=== PATIENT | female | born 1990 | race Caucasian/White ===

== ENCOUNTER 2016-06-30 20:19 | Emergency (ER) | payer BC, MEDICAID ==
[~2016-06-30] VITALS: Ht 149.9 cm; Wt 59.0 kg
[~2016-06-30 20:19] MED LIST: ALBUTEROL
[2016-06-30 20:23] VITALS: BP_SYST 118
[2016-06-30 22:17] LABS: BILIRUBIN,URINE NEGATIVE (NEGATIVE); BLOOD, URINE 3+ (NEGATIVE); COLOR,URINE YELLOW (YELLOW); GLUCOSE,URINE NEGATIVE (NEGATIVE); KETONES,URINE NEGATIVE (NEGATIVE); LEUKOCYTE ESTERASE ,URINE NEGATIVE (NEGATIVE); NITRITE, URINE NEGATIVE (NEGATIVE); PROTEIN URINE NEGATIVE (NEGATIVE); UROBILINOGEN,URINE 0.2 (0.2-1.0)
[2016-06-30 22:18] LABS: CLARITY/URINE SLIGHTLY HAZY (CLEAR)
[2016-06-30 22:28] LABS: BACTERIA,URINE FEW /HPF (None Seen); MUCUS,URINE None Seen /LPF (None Seen); RBC,URINE 20-50 /HPF (0-3); WBC,URINE 0-3 /HPF (0-3)
[2016-06-30] MEDS ORDERED: KETOROLAC TROMETHAMINE 60 MG/2 ML VIAL IM ONE (23:00)
[2016-06-30 23:11] VITALS: BP_SYST 118
== END 2016-06-30 23:11 | disposition home or self-care (01) ==
LOC: SED 20:19
DX: T19.2XXA Foreign body in vulva and vagina, initial encounter (principal); E78.00 Pure hypercholesterolemia, unspecified; J45.909 Unspecified asthma, uncomplicated; X58.XXXA Exposure to other specified factors, initial encounter; Y93.89 Activity, other specified; Y92.89 Other specified places as the place of occurrence of the external cause; Y99.8 Other external cause status
CPT/HCPCS: 81000; 81025; 96372; 99284; J1885

== ENCOUNTER 2017-01-27 11:48 | Inpatient (IN) | payer BC, MEDICAID ==
[~2017-01-27] VITALS: Ht 149.9 cm; Wt 59.0 kg
[2017-01-27 11:50] VITALS: BP_SYST 123
[2017-01-27 14:24] LABS: BASOPHILS % (AUTO) 0.5 % (0.0-2.0); EOSINOPHILS # (AUTO) 0.1 K/uL (0.0-0.4); EOSINOPHILS % (AUTO) 1.5 % (0.0-4.0); HEMATOCRIT 28.3 % (36-48); HEMOGLOBIN 8.5 g/dL (12.0-16.0); LYMPHOCYTES # (AUTO) 1.4 K/uL (1.0-5.5); LYMPHOCYTES % (AUTO) 17.1 % (20.5-51.5); MEAN CORPUSCULAR HEMOGLOBIN 20 pg (27-31); MEAN CORPUSCULAR HGB CONC 30 % (32-36); MEAN CORPUSCULAR VOLUME 65 fL (79.0-98.0); MONOCYTES # (AUTO) 0.5 K/uL (0.0-1.0); NEUTROPHILS % (AUTO) 74.9 % (40.0-70.0); PLATELET COUNT (AUTO) 275 K/uL (130-430); RED BLOOD CELL COUNT(AUTO) 4.36 MIL/uL (4.2-6.2); RED CELL DISTRIBUTION WIDTH 16.5 % (9.0-15.0)
[2017-01-27 14:44] LABS: CALCIUM 8.6 mg/dL (8.4-11.0); CREATININE 0.72 mg/dL (0.55-1.30); POTASSIUM 3.9 mmol/L (3.5-5.1)
[2017-01-27 14:49] LABS: ALBUMIN 4.5 g/dL (3.4-4.8); TOTAL BILIRUBIN 0.4 mg/dL (0.0-1.0)
[2017-01-27] MEDS ORDERED: NACL 0.9% 1,000 ML IV ONE (15:15)
[2017-01-27 16:01] LABS: PROTHROMBIN TIME 9.8 SECS (9.5-12.5)
[2017-01-27] MEDS ORDERED: FERR-57 PO (16:05)
[2017-01-27 16:33] VITALS: BP_SYST 120
[2017-01-27 16:45] LABS: BILIRUBIN,URINE NEGATIVE (NEGATIVE); BLOOD, URINE NEGATIVE (NEGATIVE); CLARITY/URINE HAZY (CLEAR); COLOR,URINE YELLOW (YELLOW); GLUCOSE,URINE NEGATIVE (NEGATIVE); KETONES,URINE NEGATIVE (NEGATIVE); LEUKOCYTE ESTERASE ,URINE NEGATIVE (NEGATIVE); NITRITE, URINE NEGATIVE (NEGATIVE); PROTEIN URINE TRACE (NEGATIVE); UROBILINOGEN,URINE 0.2 (0.2-1.0)
[2017-01-27] MEDS ORDERED: FLU VACC QS 2017-18(36MOS+)/PF 0.5 ML/SYR SYRINGE I.M. PRN (16:45)
[2017-01-27 16:57] LABS: BACTERIA,URINE FEW /HPF (None Seen); MUCUS,URINE 4+ /LPF (None Seen); RBC,URINE 0-3 /HPF (0-3)
[2017-01-27 20:00] VITALS: BP_SYST 112
[2017-01-28] VITALS: BP_SYST 101
[2017-01-28 04:00] VITALS: BP_SYST 105
[2017-01-28 06:17] LABS: HEMATOCRIT 32.3 % (36-48); HEMOGLOBIN 10.1 g/dL (12.0-16.0)
[2017-01-28] MEDS ORDERED: FERROUS SULFATE 325 MG TABLET.DR PO SCH (09:00)
[2017-01-28 12:43] VITALS: BP_SYST 107
[2017-01-28 14:40] VITALS: BP_SYST 107
[2017-01-28] MEDS ORDERED: PROV10 PO (15:45)
[2017-01-28 15:46] VITALS: BP_SYST 107
== END 2017-01-28 16:11 | disposition home or self-care (01) | DRG 532 ==
LOC: SED 11:48 → SMU 15:58
PROC: 30233N1 Transfusion of Nonautologous Red Blood Cells into Peripheral Vein, Percutaneous Approach (ICD-10-PCS; principal; 2017-01-27)
DX: D25.9 Leiomyoma of uterus, unspecified (principal); E28.2 Polycystic ovarian syndrome; D64.9 Anemia, unspecified; J45.909 Unspecified asthma, uncomplicated; E66.3 Overweight; Z68.26 Body mass index [BMI] 26.0-26.9, adult; Z79.899 Other long term (current) drug therapy
CPT/HCPCS: 36415; 76830-TC; 76857; 80053; 81000-TC; 84703; 85018-TC; 85025; 85610-TC; 85730-TC; 86886; 86900; 86901; 86920; 96360; 99285; J7030; J7040; P9021; Q2037

== ENCOUNTER 2017-02-09 09:05 | Emergency (ER) | payer MEDICAID ==
[~2017-02-09] VITALS: Ht 147.3 cm; Wt 68.0 kg
[~2017-02-09 09:05] MED LIST changes: +FERR-57 PO; +PROV10 PO
[2017-02-09 09:18] VITALS: BP_SYST 105
[2017-02-09 10:05] LABS: BASOPHILS % (AUTO) 0.4 % (0.0-2.0); EOSINOPHILS # (AUTO) 0.2 K/uL (0.0-0.4); EOSINOPHILS % (AUTO) 1.9 % (0.0-4.0); HEMATOCRIT 34.2 % (36-48); HEMOGLOBIN 10.8 g/dL (12.0-16.0); LYMPHOCYTES # (AUTO) 0.7 K/uL (1.0-5.5); LYMPHOCYTES % (AUTO) 8.8 % (20.5-51.5); MEAN CORPUSCULAR HEMOGLOBIN 23 pg (27-31); MEAN CORPUSCULAR HGB CONC 32 % (32-36); MEAN CORPUSCULAR VOLUME 71 fL (79.0-98.0); MONOCYTES # (AUTO) 0.5 K/uL (0.0-1.0); MONOCYTES % (AUTO) 5.7 % (1.7-9.3); NEUTROPHILS % (AUTO) 83.2 % (40.0-70.0); PLATELET COUNT (AUTO) 185 K/uL (130-430); RED BLOOD CELL COUNT(AUTO) 4.79 MIL/uL (4.2-6.2); RED CELL DISTRIBUTION WIDTH 24.2 % (9.0-15.0); WHITE BLOOD COUNT (AUTO) 8.4 K/uL (4.8-10.8)
[2017-02-09 10:24] LABS: CALCIUM 8.9 mg/dL (8.4-11.0); CREATININE 0.71 mg/dL (0.55-1.30); POTASSIUM 4.2 mmol/L (3.5-5.1)
[2017-02-09 10:31] LABS: ALBUMIN 4.3 g/dL (3.4-4.8); TOTAL BILIRUBIN 0.5 mg/dL (0.0-1.0)
[2017-02-09 10:43] LABS: PROTHROMBIN TIME 10.3 SECS (9.5-12.5)
[2017-02-09] MEDS ORDERED: IBUPROFEN 800 MG TABLET PO ONE (11:15)
[2017-02-09] MEDS ORDERED: HYDROcodone/ACETAMIN 10-325 MG TAB PO ONE (11:15)
[2017-02-09 12:07] VITALS: BP_SYST 105
== END 2017-02-09 12:07 | disposition home or self-care (01) ==
LOC: SED 09:05
DX: N93.8 Other specified abnormal uterine and vaginal bleeding (principal); E78.00 Pure hypercholesterolemia, unspecified; J45.909 Unspecified asthma, uncomplicated
CPT/HCPCS: 36415; 80053; 81025; 84703; 85025; 85610-TC; 85730-TC; 86886; 86900; 86901; 99284

== ENCOUNTER 2017-02-11 21:08 | Emergency (ER) | payer MEDICAID ==
[~2017-02-11] VITALS: Ht 149.9 cm; Wt 65.8 kg
[2017-02-11 21:14] VITALS: BP_SYST 115
[2017-02-11 22:17] LABS: BASOPHILS # (AUTO) 0.1 K/uL (0.0-0.2); BASOPHILS % (AUTO) 0.7 % (0.0-2.0); EOSINOPHILS # (AUTO) 0.4 K/uL (0.0-0.4); EOSINOPHILS % (AUTO) 5.6 % (0.0-4.0); HEMATOCRIT 25.1 % (36-48); HEMOGLOBIN 8.1 g/dL (12.0-16.0); LYMPHOCYTES # (AUTO) 1.3 K/uL (1.0-5.5); LYMPHOCYTES % (AUTO) 16.5 % (20.5-51.5); MEAN CORPUSCULAR HEMOGLOBIN 24 pg (27-31); MEAN CORPUSCULAR HGB CONC 32 % (32-36); MEAN CORPUSCULAR VOLUME 73 fL (79.0-98.0); MONOCYTES # (AUTO) 0.7 K/uL (0.0-1.0); MONOCYTES % (AUTO) 8.5 % (1.7-9.3); NEUTROPHILS # (AUTO) 5.2 K/uL (1.8-7.7); NEUTROPHILS % (AUTO) 68.7 % (40.0-70.0); PLATELET COUNT (AUTO) 187 K/uL (130-430); RED BLOOD CELL COUNT(AUTO) 3.43 MIL/uL (4.2-6.2); RED CELL DISTRIBUTION WIDTH 25.9 % (9.0-15.0); WHITE BLOOD COUNT (AUTO) 7.7 K/uL (4.8-10.8)
[2017-02-11 22:25] LABS: CREATININE 1.05 mg/dL (0.55-1.30); POTASSIUM 3.8 mmol/L (3.5-5.1)
[2017-02-11 22:35] LABS: ALBUMIN 4.1 g/dL (3.4-4.8); PROTHROMBIN TIME 9.7 SECS (9.5-12.5); TOTAL BILIRUBIN 0.3 mg/dL (0.0-1.0)
[2017-02-11] MEDS ORDERED: NACL 0.9% 1,000 ML IV ONE (23:30)
[2017-02-12 00:18] VITALS: BP_SYST 122
== END 2017-02-12 00:18 | disposition home or self-care (01) ==
LOC: SED 21:08
DX: D25.9 Leiomyoma of uterus, unspecified (principal); J45.909 Unspecified asthma, uncomplicated; E78.00 Pure hypercholesterolemia, unspecified
CPT/HCPCS: 36415; 76830; 76857; 80053; 84702; 85025; 85610; 85730; 96360; 99285; J7030